=== PATIENT | female | born 1990 | race Two or more races ===

== ENCOUNTER 2021-07-26 08:43 | Day surgery (SDC) | payer OTHER, SELFPAY ==
[~2021-07-26] VITALS: Ht 160 cm; Wt 55.3 kg
[2021-07-26] MEDS ORDERED: diphenhydrAMINE 50 MG/ML VIAL ONE (10:52)
[2021-07-26] MEDS ORDERED: MIDAZOLAM 2 MG/2 ML VIAL ONE (10:52)
[2021-07-26] MEDS ORDERED: fentaNYL citrate 0.05 MG/ML VIAL ONE (10:52)
[2021-07-26] MEDS ORDERED: LIDOCAINE 2% 100 MG/5 ML UJET TP ONE ×2 (10:53→12:35)
[2021-07-26] MEDS ORDERED: MIDAZOLAM 2 MG/2 ML VIAL IVP ONE (12:35)
[2021-07-26] MEDS ORDERED: SIMETHICONE 40 MG/0.6 ML PO ONE (12:35)
[2021-07-26] MEDS ORDERED: fentaNYL citrate 0.05 MG/ML VIAL IVP ONE (12:35)
[2021-07-26] MEDS ORDERED: SIMETHICONE 40 MG/0.6 ML PO SCH (12:41)
== END 2021-07-26 12:00 | disposition home or self-care (01) ==
LOC: MDS 08:43 → MMU 08:44 → MDS 12:00
PROVIDERS: ATTEND Internal Medicine Gastroenterology
DX: K62.5 Hemorrhage of anus and rectum (principal); Z79.899 Other long term (current) drug therapy; Z20.822 Contact with and (suspected) exposure to COVID-19
CPT/HCPCS: 45378; 81025; 87426; J2250; J3010; J7030; J1200